=== PATIENT | male | born 1955 | race Native Hawaiian/Other Pacific Islander ===

== ENCOUNTER 2022-08-15 01:04 | Emergency (ER) | payer OTHER ==
[~2022-08-15] VITALS: Ht 185.4 cm; Wt 137.9 kg
[2022-08-15 01:10] VITALS: TEMP 97.8
[2022-08-15 02:59] LABS: PLATELET COUNT 302 K/uL (142-355)
[2022-08-15 03:03] LABS: POTASSIUM 3.6 mmol/L (3.6-5.2)
[2022-08-15 04:35] VITALS: BP 141/69
== END 2022-08-15 04:35 | disposition home or self-care (01) ==
LOC: ED 01:04
PROVIDERS: Emergency Medicine Emergency Medical Services
DX: N13.2 Hydronephrosis with renal and ureteral calculous obstruction (principal)
CPT/HCPCS: 36415; 80053; 82150; 83690; 85027; 96374; 96375; 96376; 99284; J1170; J1200; J1885; J2270; J2405; Q9963

== ENCOUNTER 2023-01-16 07:51 | Outpatient (CLI) | payer OTHER | END 2023-01-16 20:33 | disposition home or self-care (01) | LOC: US 07:51 | PROVIDERS: ATTEND Internal Medicine | DX: R74.01 Elevation of levels of liver transaminase levels (principal) ==